=== PATIENT | male | born 1945 | race Caucasian/White ===

== ENCOUNTER 2021-12-19 17:17 | Inpatient (IN) ==
[2021-12-19] MEDS ORDERED: Naloxone 0.4 MG/ML INJ IVP PRN (18:35)
[2021-12-19] MEDS ORDERED: Artificial Tears SOLN 15 ML BOTTLE BOTH EYES PRN (18:35)
[2021-12-19] MEDS ORDERED: Vancomycin (wt based) 1,000 MG VIAL IVPB SCH (19:00)
[2021-12-19] MEDS ORDERED: Perflutren Lipid Microsphere 1.3 ML in 0.9 % Sodium Chloride 8.7 ML IVP PRN (19:46)
[2021-12-19 20:02] LABS: ABG Base Excess -6 mEq/L (-2 to 3); ABG HCO3 20 mEq/L (21-27); ABG Oxygen Saturation 100 % (95-98); ABG PCO2 40 mmHg (35-45); ABG PH 7.31 pH Units (7.32-7.45); ABG PO2 402 mmHg (85-104); ABG TCO2 21 mEq/L (20-26); Blood Gas Modality ASSIST CONTROL; Blood Gas VT 500 cc
[2021-12-19 20:21] LABS: BUN/Creatinine Ratio 15 (6-26); Blood Urea Nitrogen 21 mg/dL (8-23); Calcium 8.8 mg/dL (8.6-10.3); Carbon Dioxide 17 mEq/L (23-29); Chloride 105 mEq/L (98-107); Glucose 207 mg/dL (70-105); Magnesium 2.1 mg/dL (1.6-2.6); Osmolality,Calculated 291 (280-300); Potassium 4.3 mEq/L (3.5-5.1); Sodium 136 mEq/L (136-145); eGFR For African Americans > 60 (> 60); eGFR For Non-African Americans 51 (> 60)
[2021-12-19 20:29] LABS: Troponin I 1.22 ng/mL (< 0.04)
[2021-12-19] MEDS ORDERED: *HR* Heparin 5,000 UNIT/ML VIAL IVP PRN ×2 (20:34)
[2021-12-19] MEDS ORDERED: Vancomycin 1,250 MG/262.5 ML IV.SOLN IVPB SCH (21:00)
[2021-12-19 21:08] LABS: Hematocrit 43.3 % (37.5-50.1); Hemoglobin 13.5 g/dL (12.9-16.9); Mean Corpuscular HGB Conc 31.2 g/dL (31.6-35.5); Mean Corpuscular Hemoglobin 26.5 pg (28.0-33.3); Mean Corpuscular Volume 85.1 fL (83.0-100.0); Mean Platelet Volume 12.4 fL (9.4-12.4); Platelet Count 241 K/mcL (140-400); Red Blood Count 5.09 M/mcL (4.19-5.50); Red Cell Distribution Width 13.8 % (11.5-14.5); White Blood Count 18.4 K/mcL (4.3-11.1)
[2021-12-19] MEDS ORDERED: *HR* Midazolam HCl 2 MG/2 ML VIAL IVP ONE ×2 (21:15→22:08)
[2021-12-19 21:16] LABS: Heparin anti-factor XA UFH 0.49 IU/mL (0.30-0.70)
[2021-12-19 21:17] LABS: INR 1.3; Prothrombin Time 14.9 Seconds (9.4-12.1)
[2021-12-19] MEDS ORDERED: Dexmedetomidine HCl 400 MCG/100 ML MLS IVC SCH (21:30)
[2021-12-19] MEDS: Artificial Tears SOLN 15 ML BOTTLE BOTH EYES SCH (22:22)
[2021-12-19] MEDS: Heparin 25,000UNIT/250ML 1/2NS 25,000 UNIT/250 ML IV.SOLN IVC SCH (22:27)
[2021-12-19] MEDS: FentaNYL (PF) 1,000 MCG/100 ML IV.SOLN IVC SCH (22:33)
[2021-12-19] MEDS: *HR* Midazolam HCl 5 MG/5 ML VIAL IVP ONE ×3 (22:47→23:00)
[2021-12-19] MEDS: Chlorhexidine Rinse 15 ML MOUTHWASH MM SCH (23:01)
[2021-12-20] MEDS: Norepinephrine 4 MG/254 ML IV.SOLN IVC SCH ×5 (00:30→21:15)
[2021-12-20] MEDS: Cefepime HCl 2,000 MG in 0.9 % Sodium Chloride 10 ML IVP SCH ×2 (01:34→08:05)
[2021-12-20] MEDS: Artificial Tears SOLN 15 ML BOTTLE BOTH EYES SCH ×6 (01:34→21:16)
[2021-12-20 02:01] LABS: Calcium 8.3 mg/dL (8.6-10.3); Magnesium 1.9 mg/dL (1.6-2.6); Potassium 4.3 mEq/L (3.5-5.1)
[2021-12-20 04:16] LABS: ABG Base Excess -5 mEq/L (-2 to 3); ABG HCO3 19 mEq/L (21-27); ABG Oxygen Saturation 99 % (95-98); ABG PCO2 30 mmHg (35-45); ABG PO2 112 mmHg (85-104); ABG TCO2 20 mEq/L (20-26); Blood Gas Modality ASSIST CONTROL; Blood Gas VT 500 cc
[2021-12-20] MEDS: FentaNYL (PF) 1,000 MCG/100 ML IV.SOLN IVC SCH ×2 (08:04→18:20)
[2021-12-20] MEDS: Chlorhexidine Rinse 15 ML MOUTHWASH MM SCH ×2 (08:05→21:15)
[2021-12-20] MEDS ORDERED: DOBUTamine 1,000 MG/250 ML BAG ONE (08:10)
[2021-12-20] MEDS: DOBUTamine 1,000 MG/250 ML BAG IVC SCH ×2 (08:19→10:11)
[2021-12-20] MEDS: *HR* Midazolam HCl 2 MG/2 ML VIAL IVP PRN ×2 (08:53→10:08)
[2021-12-20] MEDS ORDERED: Pantoprazole 40 MG VIAL IVP SCH (09:00)
[2021-12-20 09:44] LABS: VBG HCO3 20 mEq/L (21-27); VBG PCO2 44 mmHg (41-51); VBG PH 7.25 pH Units (7.32-7.42); VBG PO2 62 mmHg (25-50)
[2021-12-20] MEDS ORDERED: Iopamidol - 370 200 ML INFUS..BTL ONE (10:10)
[2021-12-20] MEDS ORDERED: Nitroglycerin 1,000 MCG/5 ML VIAL IV ONE (10:10)
[2021-12-20] MEDS ORDERED: *HR* Heparin 10,000 UNIT/10 ML VIAL ONE (10:10)
[2021-12-20] MEDS ORDERED: Heparin 1,000 UNITS/500 mL 500 ML ONE (10:10)
[2021-12-20] MEDS ORDERED: 0.9 % Sodium Chloride 2,000 ML ONE (10:10)
[2021-12-20] MEDS ORDERED: Midazolam HCl 50 MG/50 ML IV.SOLN IVC SCH (10:15)
[2021-12-20] MEDS ORDERED: *HR* Midazolam HCl 2 MG/2 ML VIAL ONE (10:26)
[2021-12-20] MEDS ORDERED: *HR* Dextrose 50 % in Water (Syg) 50 ML SYRINGE IVP PRN (11:53)
[2021-12-20] MEDS ORDERED: Dextrose Gel 15 GM/37.5 ML TUBE PO PRN ×2 (11:53)
[2021-12-20] MEDS ORDERED: D5% in Water 1,000 ML IVC PRN (11:53)
[2021-12-20] MEDS: Insulin LISPRO 300 UNITS/3 ML VIAL SUBQ SCH ×2 (12:20→18:53)
[2021-12-20] MEDS ORDERED: Atropine Sulfate 1% 40 DROP/2 ML BOTTLE SL PRN (18:26)
[2021-12-20] MEDS ORDERED: *HR* FentaNYL (PF) 100 MCG/2 ML VIAL IVP PRN (18:30)
[2021-12-20] MEDS: Heparin 25,000UNIT/250ML 1/2NS 25,000 UNIT/250 ML IV.SOLN IVC SCH (19:39)
[2021-12-20] MEDS ORDERED: Cefepime HCl 2,000 MG in 0.9 % Sodium Chloride 10 ML IVP SCH (20:00)
[2021-12-20 21:15] VITALS: TEMP 99.3
[2021-12-20 22:19] VITALS: BP 123/64; PULSE 78
[2021-12-20] MEDS ORDERED: *HR* LORazepam 2 MG/ML VIAL IVP PRN (23:01)
[2021-12-20] MEDS ORDERED: Morphine Sulfate 2 MG/ML SYRINGE IVP PRN (23:01)
[2021-12-20 23:25] VITALS: O2SAT 91
== END 2021-12-21 00:18 | disposition expired | DRG 871 ==
LOC: ICNU 18:19
PROVIDERS: ADMIT Family Medicine; ATTEND Family Medicine